=== PATIENT | male | born 1970 | race Caucasian/White ===

== ENCOUNTER 2022-02-22 06:44 | Emergency (ER) | payer OTHER ==
[2022-02-22] MEDS ORDERED: Nitroglycerin 2% Ointment 1 INCH/1 GM Packet ONE (07:07)
[2022-02-22] MEDS ORDERED: hydrOXYzine 25 MG TAB ONE (07:07)
[2022-02-22 07:49] LABS: ALT (SGPT) 59 U/L (8-55); AST (SGOT) 28 U/L (5-34); Albumin 4.3 g/dL (3.5-5.0); Alkaline Phosphatase 96 U/L (40-110); Anion Gap 18 mmol/L (10-20); BUN (Urea Nitrogen) 12 mg/dL (8.4-25.7); Bilirubin, Total 0.4 mg/dL (0.2-1.2); Calc. Creatinine Clearance 0 mL/min (70-130); Calcium 9.1 mg/dL (7.8-10.44); Carbon Dioxide 19 mmol/L (22-29); Chloride 96 mmol/L (98-107); Estimated GFR 93; Globulin 4.9 g/dL (2.4-3.5); Lipase 57 U/L (8-78); Potassium 3.9 mmol/L (3.5-5.1); Protein, Total 9.2 g/dL (6.0-8.3); Sodium 129 mmol/L (136-145)
[2022-02-22 07:54] LABS: Glucose 434 mg/dL (70-105)
[2022-02-22] MEDS ORDERED: Morphine 2 MG/ML VIAL ONE ×2 (07:54→12:21)
[2022-02-22 07:56] LABS: #Basophils 0.1 thou/uL (0.0-0.2); #Eosinphils 0.4 thou/uL (0.0-0.7); #Lymphocytes 3.1 thou/uL (1.20-3.40); #Neutrophils 5.5 thou/uL (1.40-6.50); %Basophils 0.8 % (0.0-1.0); %Eosinophils 4.2 % (0.0-10.0); %Lymphocytes 30.8 % (21.0-51.0); %Monocytes 10.2 % (0.0-10.0); %Neutrophils 54.1 % (42.0-75.0); Mean Corpuscular HGB CONC 34.2 g/dL (32.0-36.0); Mean Corpuscular Hemoglobin 30.3 pg (27.0-31.0); Mean Corpuscular Volume 88.7 fl (78.0-98.0); Mean Platelet Volume 9.1 fL (7.4-10.4); Platelet Count 210 10x3/uL (130-400); RBC Distribution Width 11.5 % (11.5-14.5); Red Blood Cell (RBC) Count 4.94 mill/uL (4.70-6.10); White Blood Cell (WBC) Count 10.1 10x3/uL (4.8-10.8)
[2022-02-22] MEDS ORDERED: Acetaminophen 500 MG TAB ONE ×2 (09:58→19:59)
[2022-02-22 11:31] LABS: SARS-CoV-2 NAA Rapid Test Not Detected (NotDetected)
[2022-02-22] MEDS ORDERED: Insulin NPH Human Isophane 100 UNIT/ML (10 ML VIAL) SC SCH (18:00)
== END 2022-02-22 21:44 | disposition short-term general hospital (02) ==
LOC: ERS 06:44 → EEVIPCON 06:44 → ERS 21:44
DX: R07.2 Precordial pain (principal); E11.65 Type 2 diabetes mellitus with hyperglycemia; I10 Essential (primary) hypertension; E78.5 Hyperlipidemia, unspecified; E03.9 Hypothyroidism, unspecified; E66.9 Obesity, unspecified; I25.2 Old myocardial infarction; Z86.73 Personal history of transient ischemic attack (TIA), and cerebral infarction without residual deficits; Z79.899 Other long term (current) drug therapy; Z20.822 Contact with and (suspected) exposure to COVID-19
CPT/HCPCS: 36415; 36416; 71045; 80053; 83690; 83880; 84484; 85025; 93005; 96361; 96374; 96376; J1815; J2272; U0002